=== PATIENT | male | born 1995 | race Hispanic/Latino ===

== ENCOUNTER 2024-03-20 05:19 | Emergency (ER) | payer SELFPAY ==
[2024-03-20] VITALS (11 sets, daily range): BP systolic 95–109; BP diastolic 59–73
[2024-03-20] MEDS ORDERED: DIPHENOXYLATE W/ ATROPINE 2.5 MG TAB PO ONE (05:45)
[2024-03-20] MEDS ORDERED: ACETAMINOPHEN 500 MG TAB PO ONE (05:50)
[2024-03-20 06:11] LABS: BASO% 0.3 % (0-3); HEMATOCRIT 38.3 % (39.0-50.0); HEMOGLOBIN 13.1 g/dl (14.0-18.0); IMMATURE GRANULOCYTES 0.6 % (0.0-5.0); MEAN CELL VOLUME 87.6 fL CALC (80.0-100.0); MEAN CORPUSCULAR HGB CONC 34.2 g/dL CAL (32.0-36.0); MONO% 11.1 % (2-13); NEUT# 5.48 thou/uL (1.82-7.42); RED BLOOD COUNT 4.37 mill/uL (4.70-6.10); RED CELL DISTRI WIDTH 12.1 % (11.5-15.5)
[2024-03-20 06:18] LABS: ALBUMIN 3.8 g/dL (3.2-5.0); BILIRUBIN, TOTAL 0.2 mg/dL (0.2-1.3); CREATININE 0.9 mg/dL (0.7-1.3); TOTAL PROTEIN 6.6 g/dL (6.3-8.2)
[2024-03-20] MEDS ORDERED: IMODIUM A-D2 M3 PO (07:16)
== END 2024-03-20 07:45 | disposition home or self-care (01) | DRG 392 ==
LOC: ED 05:19
PROVIDERS: Family Medicine
DX: R19.7 Diarrhea, unspecified (principal); Z20.822 Contact with and (suspected) exposure to COVID-19